=== PATIENT | female | born 1980 | race Caucasian/White ===

== ENCOUNTER → 2016-09-07 | Outpatient (CLI) | payer OTHER ==
[~2016-09-07] MED LIST: BIRTH CONTROL PILL; BUTALB-APAP-CA1 EACH PO; CIPRO500 MG PO; CITRUCEL PO; CLONAZEPAM; CYMBALTA60 MG PO; ENDOCET 5-3251 EACH PO; FIORICET,ESG1 TABLET PO; IBUPROFEN800 MG PO; LISINOPRIL10 MG PO; LORTAB 5-325 M1 EACH PO; LOSARTAN POTASS25 MG PO; MEDROL DOSEPAK4 MG PO; MOTRIN600 MG PO; MOTRIN800 MG PO; NORCO 5/3251 TABLET PO; ONE-A-DAY WOME1 EACH PO; PERCOCET 5/31 TABLET PO; PROMETHAZINE HC25 M1 PO; REGLAN10 MG PO; TOPAMAX100 MG PO; TORADOL10 MG PO; TYLENOL EXTRA500 MG PO; ZANTAC150 MG PO; ZOFRAN ODT4 MG PO; ZOFRAN ODT8 MG PO; ZOFRAN4 MG PO; ZOLOFT50 MG PO
== END | disposition home or self-care (01) ==
LOC: NUC 07:00
DX: R10.13 Epigastric pain (principal); R10.33 Periumbilical pain; R11.0 Nausea; K59.00 Constipation, unspecified
CPT/HCPCS: 78227; A9537; J2805